=== PATIENT | female | born 1965 | race African-American/Black ===

== ENCOUNTER 2017-05-01 16:24 | Emergency (ER) | payer MEDICARE, MEDICAID ==
[~2017-05-01] VITALS: Ht 149.9 cm; Wt 94.3 kg
[2017-05-01 16:36] VITALS: Ht 149.9 cm; Wt 94.3 kg
[2017-05-01 18:57] VITALS: BP 139/79
== END 2017-05-01 18:57 ==
LOC: ED 16:24
DX: I10 Essential (primary) hypertension (principal); F11.20 Opioid dependence, uncomplicated; J45.909 Unspecified asthma, uncomplicated; K21.9 Gastro-esophageal reflux disease without esophagitis; F31.9 Bipolar disorder, unspecified; Z88.5 Allergy status to narcotic agent